=== PATIENT | male | born 1960 | race Caucasian/White ===

== ENCOUNTER → 2016-07-26 | Outpatient (CLI) | payer OTHER ==
--- NOTE | ~2016-07-26 | NDGEN ---
PATIENT'S NAME: FLORENCIO [facility] AGE: 56 Y [address] ROOM: [place] [id number] LOCATION: [facility] ADMIT DATE: 07/26/2016 Neuro[facility]ostics DISCHARGE DATE: FAMILY PHYSICIAN: Ramon Crowder MD ATTENDING PHYSICIAN: PENELOPE COLEY DATE OF PROCEDURE: 07/26/2016 PROCEDURE PERFORMED: Nerve conduction study of bilateral upper extremities and needle EMG of the left upper extremity. INDICATIONS FOR PROCEDURE: This is a 56-year-old male patient, who has had around 4 to 5 years of numbness at the wrist and hand in the median dermatomal distribution. He has classic carpal tunnel syndrome symptoms with numbness during the day, but certainly far more in the morning when he gets up from sleeping, where the numbness takes time to wear off. However, he is bothered by his symptoms even with very conservative management. DESCRIPTION OF PROCEDURE: Nerve conduction studies were done in the median and ulnar bilateral motor nerves as well as the median and ulnar sensory nerves. There was a definite delay in the left median nerve conduction at the wrist as noted by the motor onset latencies of being 4.0 milliseconds. The left peak onset latencies were also delayed at 4.5 milliseconds with the normal being 3.8 milliseconds. Nerve conduction velocities were otherwise within normal limits. Needle EMG of the abductor pollicis brevis muscles showed no evidence of fibrillation potentials, however, there was slightly reduced motor unit action potential recruitment. 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 The findings are significant based upon delay of the motor onset latencies and peak sensory latencies in a nondominant left hand. 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 The patient should have carpal tunnel release surgery based upon the above findings. PATIENT'S NAME: FLORENCIO PRINCE [facility] AGE: 56 Y [address] ROOM: [place] [address] LOCATION: [facility] ADMIT DATE: 07/26/2016 Neurodiagnostics DISCHARGE DATE: FAMILY PHYSICIAN: Ramon Crowder MD ATTENDING PHYSICIAN: PENELOPE COLEY MD JRM/javy /[id number] dtt: 08/04/16 2215 , PENELOPE TUTTLE dtd: 07/26/16 1948
== END | disposition disaster alternative care site (69) ==
LOC: GNEU 07-15 15:00
DX: R20.0 Anesthesia of skin (principal); G62.9 Polyneuropathy, unspecified; R53.1 Weakness